=== PATIENT | female | born 1990 | race American Indian/Alaskan Native ===

== ENCOUNTER 2017-03-20 11:27 | Outpatient (CLI) | payer OTHER ==
[2017-03-20 12:01] VITALS: BP 125/74
[2017-03-20 13:42] LABS: Bacteria,Urine 1+ /HPF (Negative); Bilirubin,Urine NEG (Negative); Blood,Urine SM (Negative); Ketones,Urine NEG (Negative); Leukocyte Esterase,Urine NEG (Negative); Mucus,Urine FEW /HPF; Nitrite,Urine NEG (Negative); Protein,Urine <15 mg/dL mg/dL (Negative); Urobilinogen,Urine < 2.0 mg/dL (<2.0)
--- NOTE | 2017-03-20 14:49 | Ultrasound Report ---
BIOPHYSICAL PROFILE: 2 - breathing movements 2 - movements 2 - posture and tone 2 - Qualitative amniotic fluid volume 8 - TOTAL SCORE OF POSSIBLE 8 Heart Rate (bpm) 140
--- NOTE | 2017-03-20 14:50 | Ultrasound Report ---
Limited OB ultrasound. Findings: There is a single intrauterine in cephalic presentation with a normal GILDARDO of 10.5 cm. The heart rate is 140 beats per minute.
== END 2017-03-20 14:10 | disposition home or self-care (01) ==
LOC: EDBD 11:27 → TRG 11:27
PROVIDERS: ATTEND Obstetrics & Gynecology Gynecology
DX: O47.1 False labor at or after 37 completed weeks of gestation (principal); Z3A.39 39 weeks gestation of pregnancy
CPT/HCPCS: 59025; 76815; 76819; 81001

== ENCOUNTER 2017-08-25 10:34 | Emergency (ER) | payer OTHER ==
[2017-08-25] MEDS ORDERED: TYLENOL ONE (10:56)
[2017-08-25] MEDS ORDERED: NACL 0.9% 500 ML 500 ML IV ONE (11:01)
[2017-08-25] MEDS ORDERED: TYLENOL PO ONE ×2 (11:03→17:45)
[2017-08-25 11:24] LABS: Basophils # (Auto) 0.1 K/mm3 (0.0-0.1); Basophils % (Auto) 0.5 % (0.0-1.8); Hematocrit 39.6 % (30.3-42.9); Hemoglobin 13.2 gm/dl (10.1-14.3); Lymphocytes # (Auto) 1.2 K/mm3 (1.2-5.4); Mean Corpuscular HGB Conc 33 % (30-34); Mean Corpuscular Hemoglobin 31 pg (28-32); Mean Corpuscular Volume 91 fl (79-97); Monocytes # (Auto) 1.1 K/mm3 (0.0-0.8); Monocytes % (Auto) 9.9 % (0.0-7.3); Platelet Count 180 K/mm3 (140-440); Red Blood Count 4.34 M/mm3 (3.65-5.03); Red Cell Distribution Width 13.8 % (13.2-15.2)
[2017-08-25 11:34] LABS: INR 0.94 (0.87-1.13)
[2017-08-25 11:54] LABS: Alanine Aminotransferase 7 units/L (7-56); Albumin 4.1 g/dL (3.9-5); BUN/Creatinine Ratio 10; Blood Urea Nitrogen 8 mg/dL (7-17); Calcium 8.8 mg/dL (8.4-10.2); Hemolysis Index 12
--- NOTE | 2017-08-25 12:03 | XRay Report ---
AP CHEST: HISTORY: Sepsis AP view of the chest demonstrates a normal mediastinal and cardiac contour with clear lungs and normal bony and soft tissue structures. IMPRESSION: Unremarkable AP chest.
[2017-08-25 12:20] LABS: Bacteria,Urine 1+ /HPF (Negative); Bilirubin,Urine NEG (Negative); Blood,Urine SM (Negative); Color,Urine Yellow (Yellow); Mucus,Urine FEW /HPF; Protein,Urine <15 mg/dL mg/dL (Negative); Urobilinogen,Urine < 2.0 mg/dL (<2.0)
[2017-08-25] MEDS ORDERED: MACROBID PO ONE (17:44)
[2017-08-25] MEDS ORDERED: TORADOL IV ONE (17:44)
--- NOTE | 2017-08-25 17:55 | Emergency Department Report ---
HPI - General Chief Complaint: Fever Time Seen by Provider: 08/25/17 17:31 - HPI HPI: 27-year-old AA female presents to the emergency department from home with complaint of generalized body aches, headache, subjective fever and chills that started last night. She took some ibuprofen last night around 10 PM with only some transient relief. She denies any nausea, vomiting, cough, shortness of breath, dysuria, vaginal bleeding or discharge. She denies any past medical history. No recent travel or sick contacts at home. She has a primary care physician but is unsure the last time she saw them. ED Past Medical Hx - Past Medical History Previous Medical History?: No Hx Hypertension: No Hx Diabetes: No Hx Deep Vein Thrombosis: No Hx Renal Disease: No Hx Sickle Cell Disease: No Hx Seizures: No Hx Asthma: No Hx HIV: No - Surgical History Past Surgical History?: No - Social History Smoking Status: Never Smoker - Medications Home Medications: Home Medications Medication Instructions Recorded Confirmed Last Taken Type Pnv No.95/Ferrous Fum/Folic AC 1 each PO DAILY 03/20/17 03/23/17 1 Day Ago History [ Caplet] ~03/19/17 Ferrous Sulfate [Feosol 325 MG tab] 325 mg PO BID #60 tablet 03/24/17 Unknown Rx HYDROcodone/APAP 5-325 [Murphy 1 each PO Q6H PRN #14 tablet 03/24/17 Unknown Rx 5-325 mg TAB] Ibuprofen [Motrin 600 MG tab] 600 mg PO Q6HR #30 tablet 03/24/17 Unknown Rx Vit-Fe Fumar-FA [ 1 each PO QDAY #30 tablet 03/24/17 Unknown Rx Vitamin] Nitrofurantoin Monohyd/M-Cryst 100 mg PO BID #14 capsule 08/25/17 Unknown Rx [Macrobid 100 mg Capsule] ED Review of Systems ROS: Stated complaint: BODY ACHES/MARTINEZ Other details as noted in HPI Comment: All other systems reviewed and negative Constitutional: chills, fever Eyes: denies: eye pain, eye discharge, vision change ENT: denies: ear pain, throat pain Respiratory: denies: cough, shortness of breath, wheezing Cardiovascular: denies: chest pain, palpitations Gastrointestinal: denies: abdominal pain, nausea, diarrhea Genitourinary: denies: urgency, dysuria, discharge Musculoskeletal: back pain, myalgia. denies: joint swelling Skin: denies: rash, lesions Neurological: headache. denies: numbness Physical Exam - Physical Exam Vital Signs: Vital Signs 08/25/17 08/25/17 10:53 17:12 Temperature 102.9 F H 101.9 F H Pulse Rate 125 H 118 H Respiratory 18 16 Rate Blood Pressure 121/79 Blood Pressure 133/88 [Left] O2 Sat by Pulse 100 100 Oximetry Physical Exam: GENERAL: The patient is well-developed well-nourished. HENT: Normocephalic. Atraumatic. Patient has moist mucous membranes. EYES: Extraocular motions are intact. Pupils equal reactive to light bilaterally. NECK: Supple. Trachea is midline. CHEST/LUNGS: Clear to auscultation. There is no respiratory distress noted. HEART/CARDIOVASCULAR: Regular. There is mild to moderate tachycardia. There is no murmur. ABDOMEN: Abdomen is soft, nontender. Patient has normal bowel sounds. There is no abdominal distention. SKIN: Skin is warm and dry. NEURO: The patient is awake, alert, and oriented. The patient is cooperative. The patient has no focal neurologic deficits. The patient has normal speech. Cranial nerves II through XII grossly intact. MUSCULOSKELETAL: There is no tenderness or deformity. There is no limitation range of motion. There is no evidence of acute injury. ED Course Vital Signs 08/25/17 08/25/17 10:53 17:12 Temperature 102.9 F H 101.9 F H Pulse Rate 125 H 118 H Respiratory 18 16 Rate Blood Pressure 121/79 Blood Pressure 133/88 [Left] O2 Sat by Pulse 100 100 Oximetry ED Medical Decision Making - Lab Data Result diagrams: 08/25/17 11:06 08/25/17 11:06 - EKG Data -: EKG Interpreted by Me EKG shows normal: sinus rhythm, axis, intervals, QRS complexes, ST-T waves Rate: tachycardia (124 bpm) - EKG Data When compared to previous EKG there are: previous EKG unavailable Interpretation: normal EKG (with sinus tachycardia at 124 bpm) - Radiology Data Radiology results: image reviewed interpreted by me: Chest x-ray does not show any acute process. There are no pleural effusions, obvious pneumonia and there is no pneumothorax. - Medical Decision Making Patient presents with body aches, fever, headache. She does not have any focal , motor or sensory deficits. Cranial nerves are intact. Labs were mostly unremarkable except for a mild urinary tract infection. She was given some Macrobid for treatment of the mild UTI. She was given some IV fluid, Tylenol and Toradol and upon reevaluation her fever had come way down to 100.1 and her tachycardia resolved. The patient was reevaluated and says she is feeling much better. She will use Tylenol and ibuprofen at home as needed for fever and/or discomfort and has a prescription for Macrobid. She's been encouraged to follow up with her primary care physician and will return to the ER with any worsening of her symptoms or any acute distress. - Differential Diagnosis influenza, viral syndrome, pneumonia Critical Care Time: No Critical care attestation.: If time is entered above; I have spent that time in minutes in the direct care of this critically ill patient, excluding procedure time. ED Disposition Clinical Impression: Viral syndrome Fever Qualifiers: Fever type: unspecified Qualified Code(s): R50.9 - Fever, unspecified UTI (urinary tract infection) Qualifiers: Urinary tract infection type: acute cystitis Hematuria presence: with hematuria Qualified Code(s): N30.01 - Acute cystitis with hematuria Disposition: DC- TO HOME OR SELFCARE Is pt being admited?: No Condition: Stable Instructions: Urinary Tract Infection in Women (ED), Fever in Adults (ED), Viral Syndrome (ED) Additional Instructions: Please follow-up with your primary care physician in the next few days. Return to the emergency Department with any worsening of your symptoms or any acute distress. You can use Tylenol every 4 hours and ibuprofen every 6 hours, using weight-based dosing, as needed for fever or discomfort. Prescriptions: Nitrofurantoin Monohyd/M-Cryst [Macrobid 100 mg Capsule] 100 mg PO BID #14 capsule Referrals: PRIMARY CAREMD [Primary Care Provider] - [facility]IP Time of Disposition: 19:52
[2017-08-25] MEDS ORDERED: NACL 0.9% 500 ML 500 ML ONE (17:58)
[2017-08-25 19:49] VITALS: BP 138/73
== END 2017-08-25 20:15 | disposition home or self-care (01) ==
LOC: ED 10:34
DX: B34.9 Viral infection, unspecified (principal); N30.01 Acute cystitis with hematuria; R50.9 Fever, unspecified
CPT/HCPCS: 36415; 71045; 80053; 81001; 82140; 82805; 84703; 85025; 85610; 87040; 87086; 93005; 93010; 96374; 99284; J1885; J7040